=== PATIENT | male | born 1965 | race African-American/Black ===

== ENCOUNTER 2016-10-31 19:35 | Inpatient (IN) | payer OTHER ==
[2016-10-31] MEDS ORDERED: SODIUM CHLORIDE 1,000 ML IV STA (19:43)
[2016-10-31] MEDS ORDERED: HYDROmorphone HCL CARPU-JECT 1 MG/1 ML DISP.SYRIN IVPB ONE ×2 (19:43→21:58)
[2016-10-31] MEDS ORDERED: ONDANSETRON 4 MG/2 ML VIAL IVPUSH ONE (19:43)
[2016-10-31] MEDS ORDERED: FAMOTIDINE 20 MG/50 ML IVPB 50 ML IVPB ONE (19:46)
--- NOTE | 2016-10-31 19:47 | PDOC ---
History of Present Illness - History of Present Illness Initial Comments: 10/31/16 20:56 The patient is a 51 year old male with a past medical hx of diabetes, HTN, hyperthyroidism who presents to the ED complaining of intermittent diffuse abdominal pain. The patient reports he was seen at [place] [facility] two days ago for the same complaint. He notes he was given medication for his pain and had an entire work up including a CT abdomen/pelvis and endoscopy, which were both unremarkable. He states he stayed in the hospital for two days and was discharged yesterday. The patient states his pain then came back today and is very severe. He reports this pain started 1 year ago and has recently worsened over the past few days. He is scheduled for a colonoscopy at the end of the month. The patient reports waves of nausea but denies fever, chills, vomiting, diarrhea , chest pain, SOB. <Verona Goins - Last Filed: 10/31/16 20:56> <Adela Portillo - Last Filed: 11/03/16 11:50> - General Chief Complaint: Pain, Acute Stated Complaint: ABDOMINAL PAIN Time Seen by Provider: 10/31/16 19:42 Past History <Verona Goins - Last Filed: 10/31/16 20:56> - Psycho/Social/Smoking Cessation Hx Suicidal Ideation: No Smoking History: Smoker current status UNK Have you smoked in the past 12 months: No Information on smoking cessation initiated: No Hx Alcohol Use: No Drug/Substance Use Hx: No <Adela Portillo - Last Filed: 11/03/16 11:50> - Past Medical History Allergies/Adverse Reactions: Allergies Allergy/AdvReac Type Severity Reaction Status Date / Time No Known Allergies Allergy Verified 10/31/16 19:42 Home Medications: Ambulatory Orders Insulin Aspart [Novolog] 100 unit SQ ASDIR 10/31/16 Insulin Glargine,Hum.rec.anlog [Toujeo Solostar] 300 unit SQ ASDIR 10/31/16 Levothyroxine [Synthroid -] 25 mcg PO DAILY 10/31/16 Lisinopril/Hydrochlorothiazide [Lisinopril-Hctz 20-25 mg Tab] 1 each PO ASDIR Lovastatin 10 mg PO ASDIR 10/31/16 Metformin HCl 500 mg PO ASDIR 10/31/16 Review of Systems - Review of Systems Able to Perform ROS?: Yes Comments:: 10/31/16 20:56 GENERAL/CONSTITUTIONAL: No: fever, chills, weakness, loss of appetite. HEAD, EYES, EARS, NOSE AND THROAT: No: change in vision, ear pain, discharge, sore throat, throat swelling. CARDIOVASCULAR: No: chest pain, lightheadedness, palpitations, syncope RESPIRATORY: No: cough, shortness of breath, wheezing, hemoptysis, stridor. GASTROINTESTINAL: +Nausea, abdominal pain. No: vomiting, diarrhea, rectal bleeding, constipation. GENITOURINARY: No: dysuria, hematuria, frequency, urgency, flank pain. MUSCULOSKELETAL: No: back pain, neck pain, joint pain, muscle swelling or pain SKIN: No: lesions, pallor, rash or easy bruising. NEUROLOGIC: No: headache, vertigo, paresthesias, weakness ENDOCRINE: No: unexplained weight gain or loss HEMATOLOGIC/LYMPHATIC: No: anemia, easy bleeding, swelling nodes <Verona Goins - Last Filed: 10/31/16 20:56> *Physical Exam - Vital Signs Last Vital Signs Temp Pulse Resp BP Pulse Ox 97.5 F L 103 H 22 184/93 100 10/31/16 19:42 10/31/16 19:42 10/31/16 19:42 10/31/16 19:42 10/31/16 19:42 - Physical Exam Comments: 10/31/16 20:56 GENERAL: +Appears uncomfortable. HEAD: Normal with no signs of trauma. EYES: PERRLA, EOMI, sclera anicteric, conjunctiva clear. ENT: Ears normal, nares patent, oropharynx clear without exudates. Moist mucous membranes. NECK: Normal range of motion, supple without lymphadenopathy, JVD, or masses. LUNGS: Breath sounds equal, clear to auscultation bilaterally. No wheezes, and no crackles. HEART:Regular rate and rhythm, normal S1 and S2 without murmur, rub or gallop. ABDOMEN: +Epigastric tenderness. Soft, normoactive bowel sounds. No guarding, no rebound. EXTREMITIES: Normal range of motion, no edema. No clubbing or cyanosis. No erythema, or tenderness. NEUROLOGICAL: Cranial nerves II through XII grossly intact. Normal speech. No focal neurological deficits. MUSCULOSKELETAL: Back nontender to palpation, no CVA tenderness SKIN: Warm, Dry, normal turgor, no rashes or lesions noted. <Verona Goins - Last Filed: 10/31/16 20:56> - Vital Signs Last Vital Signs Temp Pulse Resp BP Pulse Ox 97.5 F L 103 H 22 184/93 100 10/31/16 19:42 10/31/16 19:42 10/31/16 19:42 10/31/16 19:42 10/31/16 19:42 <Adela Portillo - Last Filed: 11/03/16 11:50> Heart Score/ECG Review #1 ECG reviewed & interpreted by me at: 00:44 11/01/16 00:44 sinus tachycardia 105 vpm [place] normal Intervals normal: pr:140ms, QRS:90ms, Qtc:478ms No st elevations or depression T waves nml <Adela Portillo - Last Filed: 11/03/16 11:50> ED Treatment Course - LABORATORY CBC & Chemistry Diagram: 10/31/16 20:20 10/31/16 20:20 - ADDITIONAL ORDERS Additional order review: 10/31/16 20:20 RBC 4.40 MCV 86.6 MCHC 33.7 RDW 13.8 MPV 10.5 Neutrophils % 78.3 Lymphocytes % 16.7 Monocytes % 3.8 Eosinophils % 0.0 Basophils % 1.2 - Medications Given in the ED: ED Medications Discontinued Medications Generic Name Dose Route Start Last Admin Trade Name Freq PRN Reason Stop Dose Admin Hydromorphone HCl 0.5 mg 10/31/16 19:43 10/31/16 20:24 Dilaudid Injection - IVPB 10/31/16 19:44 0.5 mg NOW ONE Administration Sodium Chloride 1,000 mls @ 1,000 mls/hr 10/31/16 19:43 10/31/16 20:24 Normal Saline - IV 10/31/16 20:42 1,000 mls/hr ASDIR STA Administration Famotidine/Sodium Chloride 50 mls @ 100 mls/hr 10/31/16 19:46 10/31/16 20:24 Pepcid 20 Mg Premixed Ivpb - IVPB 10/31/16 20:15 100 mls/hr ONCE ONE Administration Ondansetron HCl 4 mg 10/31/16 19:43 10/31/16 20:24 Zofran Injection IVPUSH 10/31/16 19:44 4 mg ONCE ONE Administration <Verona Goins - Last Filed: 10/31/16 20:56> - LABORATORY CBC & Chemistry Diagram: 11/03/16 06:58 11/03/16 06:58 <Adela Portillo - Last Filed: 11/03/16 11:50> Medical Decision Making - Medical Decision Making 10/31/16 22:46 This is a 51 yo M with a history of diabetes, HTN, hyperthyroidism who presents to the ED complaining of intermittent diffuse abdominal pain. his symptoms began approximately 1 year ago His symptoms have been intermittent and have been worsening He was admitted to [facility] two days ago where he was admitted for 2 days S/p CT which was reportedly normal S/p Endoscopy which was also normal Pt was discahrged to home, stated he felt pretty good when he left He describes pain as sharp, initially located in the upper abdomen but pain "is moving" No fevers or chills No diarrhea (+) constipation for the past 2 days Pt denies marijuana use DD: pancreatitis, cholelithiasis/cholecystitis, sbo, colitis, gastritis, gastroparesis 10/31/16 22:57 Laboratory Tests 10/31/16 10/31/16 20:20 20:20 WBC 11.2 H Hgb 12.8 Hct 38.1 Plt Count 207 Neutrophils % 78.3 Lymphocytes % 16.7 Sodium 134 L Potassium 3.9 Chloride 100 Carbon Dioxide 22 Anion Gap 12 BUN 15 Creatinine 1.1 Random Glucose 261 H AST 41 H ALT 56 Alkaline Phosphatase 78 Total Protein 8.5 H Albumin 3.8 Total Amylase 232 H Lipase [address] (as I have no way of confirming that his studies were negative) PT admitted to [facility] Of note: Pt repeatedly requesting narcotic pain medications Pt states that Morphine is not strong enough Clinical Impression: intractable abdominal pain 11/03/16 11:49 <Adela Portillo - Last Filed: 11/03/16 11:50> *DC/Admit/Observation/Transfer - Attestations Scribe Attestion: 10/31/16 20:56 Documentation prepared by Verona Goins, acting as caregivers non medical for Adela Portillo MD/DO. <Verona Goins - Last Filed: 10/31/16 20:56> - Discharge Dispostion Admit: Yes <Adela Portillo - Last Filed: 11/03/16 11:50> Diagnosis at time of Disposition: Abdominal pain Qualifiers: Abdominal location: unspecified location Qualified Code(s): R10.9 - Unspecified abdominal pain - Discharge Dispostion Condition at time of disposition: Stable
[2016-10-31] MEDS ORDERED: HYDROmorphone HCL CARPU-JECT 1 MG/1 ML DISP.SYRIN ONE ×2 (20:18→22:01)
[2016-10-31] MEDS ORDERED: ONDANSETRON 4 MG/2 ML VIAL ONE (20:18)
[2016-10-31 20:32] LABS: BASOPHIL 1.2 % (0-2.0); MCH 29.2 pg (25.7-33.7); MCHC 33.7 g/dl (32.0-35.9); MEAN CELL VOLUME 86.6 fl (80-96); MEAN PLT VOLUME 10.5 fl (7.5-11.1); NEUTROPHILS 78.3 % (42.8-82.8); PLATELET COUNT 207 K/MM3 (134-434); RDW 13.8 % (11.9-15.9); WHITE BLOOD COUNT 11.2 K/mm3 (4.0-10.0)
[2016-10-31 21:16] LABS: ALBUMIN 3.8 g/dl (3.4-5.0); ALK PHOS 78 U/L (45-117); AMYLASE 232 U/L (25-115); ANION GAP 12 (8-16); BILIRUBIN,TOTAL 0.7 mg/dL (0.2-1.0); CALCIUM 9.4 mg/dL (8.5-10.1); CO2 22 mmol/L (21-32); COCKROFT - GAULT 128.86; CREATININE 1.1 mg/dL (0.7-1.3); GLUCOSE,RANDOM 261 mg/dL (74-106); SGOT/AST 41 U/L (15-37); SGPT/ALT 56 U/L (12-78); TOT PROT 8.5 g/dl (6.4-8.2)
[2016-10-31] MEDS ORDERED: SODIUM CHLORIDE 1,000 ML IV SCH (22:45)
[2016-10-31] MEDS ORDERED: HYDROmorphone HCL CARPU-JECT 2 MG/1 ML DISP.SYRIN ONE (23:36)
[2016-10-31] MEDS ORDERED: DOCUSATE SODIUM 100 MG CAPSULE (FP) PO ONE (23:38)
[2016-10-31] MEDS: HYDROmorphone HCL CARPU-JECT 2 MG/1 ML DISP.SYRIN IM PRN (23:45)
[2016-10-31] MEDS: DOCUSATE SODIUM 100 MG CAPSULE (FP) PO PRN (23:45)
[2016-11-01 01:12] VITALS: BMI 39.2
[2016-11-01 01:20] LABS: URINE APPEARANCE CLEAR; URINE BILIRUBIN NEGATIVE (NEGATIVE); URINE COLOR STRAW; URINE GLUCOSE (UA) 3+ (NEGATIVE); URINE KETONE TRACE (NEGATIVE); URINE LEUK ESTERASE NEGATIVE (NEGATIVE); URINE NITRITE NEGATIVE (NEGATIVE); URINE UROBILINOGEN NEGATIVE E.U./dl (0.2-1.0)
[2016-11-01 01:23] LABS: URINE BLOOD 1+ (NEGATIVE); URINE PROTEIN 3+ (NEGATIVE)
[2016-11-01 01:28] LABS: URINE BACTERIA RARE /hpf (NONE SEEN); URINE MUCUS RARE; URINE RBC 4 /hpf (0-3); URINE WBC 1 /hpf (3-5)
[2016-11-01] MEDS ORDERED: SODIUM CHLORIDE 0.45% 1,000 ML IV SCH (02:15)
[2016-11-01] MEDS: amLODIPine BESYLATE 10 MG TABLET (FP) PO SCH ×2 (02:24→10:44)
[2016-11-01 03:43] LABS: URINE MARIJUANA THC NEGATIVE ng/ml (CUTOFF=50)
[2016-11-01] MEDS: HYDROmorphone HCL CARPU-JECT 2 MG/1 ML DISP.SYRIN IM PRN ×2 (03:46→08:36)
[2016-11-01] MEDS: INSULIN SLIDING SCALE (NOVOLOG) 1 VIAL SQ SCH ×4 (06:10→21:45)
[2016-11-01] MEDS ORDERED: LEVOTHYROXINE NA 25 MCG TABLET (FP) PO SCH (07:00)
[2016-11-01] MEDS ORDERED: SODIUM PHOSPHATE/NA BIPHOS 133 ML ENEMA RC ONE (09:30)
[2016-11-01] MEDS: SODIUM PHOSPHATE/NA BIPHOS 133 ML ENEMA RC ONE ×2 (09:30→14:30)
[2016-11-01] MEDS: ONDANSETRON 4 MG/2 ML VIAL IVPB PRN ×2 (09:50→20:00)
[2016-11-01 10:37] LABS: BASOPHIL 0.8 % (0-2.0); EOSINOPHIL 0.2 % (0-4.5); MCH 28.9 pg (25.7-33.7); MCHC 33.2 g/dl (32.0-35.9); MEAN CELL VOLUME 87.2 fl (80-96); MEAN PLT VOLUME 10.3 fl (7.5-11.1); NEUTROPHILS 70.8 % (42.8-82.8); PLATELET COUNT 194 K/MM3 (134-434); RDW 14.1 % (11.9-15.9); WHITE BLOOD COUNT 13.9 K/mm3 (4.0-10.0)
[2016-11-01] MEDS: FAMOTIDINE 20 MG/50 ML IVPB 50 ML IVPB SCH ×2 (10:44→21:44)
[2016-11-01] MEDS: LISINOPRIL 20 MG TABLET (FP) PO SCH (10:44)
[2016-11-01] MEDS: HYDROCHLOROTHIAZIDE 25 MG TABLET (FP) PO SCH (10:44)
[2016-11-01 10:54] LABS: THYROID STIMULATING HORMONE 4.71 uIU/ml (0.358-3.74); TROPONIN I < 0.02 ng/ml (0.00-0.05)
[2016-11-01 11:12] LABS: ALBUMIN 3.2 g/dl (3.4-5.0); ANION GAP 12 (8-16); BILIRUBIN,TOTAL 0.7 mg/dL (0.2-1.0); CALCIUM 8.7 mg/dL (8.5-10.1); CO2 24 mmol/L (21-32); COCKROFT - GAULT 122.04; CREATININE 1.2 mg/dL (0.7-1.3); GLUCOSE,RANDOM 220 mg/dL (74-106); SGOT/AST 27 U/L (15-37); SGPT/ALT 45 U/L (12-78); TOT PROT 7.7 g/dl (6.4-8.2)
[2016-11-01 11:21] LABS: ALK PHOS 70 U/L (45-117); THYROID STIMULATING HORMONE 4.73 uIU/ml (0.358-3.74); TROPONIN I < 0.02 ng/ml (0.00-0.05)
[2016-11-01 12:20] LABS: ERYTHROCYTE SEDIMENTATION RATE 62 mm/hr (0-20)
--- NOTE | 2016-11-01 12:24 | EKG ---
Test Reason : Blood Pressure : / mmHG Vent. Rate : 105 BPM Atrial Rate : 105 BPM P-R Int : 140 ms QRS Dur : 090 ms QT Int : 362 ms P-R-T Axes : 053 044 037 degrees QTc Int : 478 ms SINUS TACHYCARDIA OTHERWISE NORMAL ECG WHEN COMPARED WITH ECG OF 06-AUG-2004 03:42, NO SIGNIFICANT CHANGE WAS FOUND Confirmed by LEONORA NOONAN MD ([id number]) on 11/01/2016 12:24:19 PM Referred By: Confirmed By:LEONORA NOONAN MD
--- NOTE | 2016-11-01 14:43 | HP ---
Admitting History and Physical - Primary Care Physician PCP: Keisha Talavera - Admission Chief Complaint: abd pain History Source: Medical Record - Smoking History Smoking history: Smoker current status UNK Have you smoked in the past 12 months: No - Alcohol/Substance Use Hx Alcohol Use: No Home Medications - Allergies Allergies/Adverse Reactions: Allergies Allergy/AdvReac Type Severity Reaction Status Date / Time No Known Allergies Allergy Verified 10/31/16 19:42 - Home Medications Home Medications: Ambulatory Orders Insulin Aspart [Novolog] 100 unit SQ ASDIR 10/31/16 Insulin Glargine,Hum.rec.anlog [Toujeo Solostar] 300 unit SQ ASDIR 10/31/16 Levothyroxine [Synthroid -] 25 mcg PO DAILY 10/31/16 Lisinopril/Hydrochlorothiazide [Lisinopril-Hctz 20-25 mg Tab] 1 each PO ASDIR Lovastatin 10 mg PO ASDIR 10/31/16 Metformin HCl 500 mg PO ASDIR 10/31/16 Review of Systems - Review of Systems Constitutional: denies: Chills, Fever Neck: reports: No Symptoms Cardiovascular: reports: No Symptoms Respiratory: reports: No Symptoms Gastrointestinal: reports: Abdominal Pain Genitourinary: reports: No Symptoms Musculoskeletal: reports: No Symptoms Physical Examination Vital Signs: Vital Signs Temperature 97.9 F 11/01/16 13:40 Pulse Rate 89 11/01/16 13:43 Respiratory Rate 20 11/01/16 13:43 Blood Pressure 163/111 11/01/16 13:43 O2 Sat by Pulse Oximetry (%) 94 L 11/01/16 11:00 Constitutional: Yes: Calm Eyes: Yes: WNL HENT: Yes: WNL Neck: Yes: WNL Cardiovascular: Yes: WNL Respiratory: Yes: WNL Gastrointestinal: Yes: WNL Edema: No Labs: CBC, BMP 11/01/16 10:00 11/01/16 10:00 Imaging - Results Cat Scan: Report Reviewed (ct report pending) Problem List - Problems (1) Abdominal pain Code(s): R10.9 - UNSPECIFIED ABDOMINAL PAIN Qualifiers: Abdominal location: unspecified location Qualified Code(s): R10.9 - Unspecified abdominal pain (2) Diabetes Code(s): E11.9 - TYPE 2 DIABETES MELLITUS WITHOUT COMPLICATIONS (3) HTN (hypertension) Code(s): I10 - ESSENTIAL (PRIMARY) HYPERTENSION (4) Hypothyroid Code(s): E03.9 - HYPOTHYROIDISM, UNSPECIFIED (5) Leukocytosis Code(s): D72.829 - ELEVATED WHITE BLOOD CELL COUNT, UNSPECIFIED Assessment/Plan The patient is a 51 year old male with a past medical hx of diabetes, HTN, hyperthyroidism who presents to the ED complaining of intermittent diffuse abdominal pain. The patient reports he was seen at [place] ED two days ago for the same complaint. He notes he was given medication for his pain and had an entire work up including a CT abdomen/pelvis and endoscopy, which were both unremarkable. He states he stayed in the hospital for two days and was discharged yesterday. The patient states his pain then came back today and is very severe. He reports this pain started 1 year ago and has recently worsened over the past few days. He is scheduled for a colonoscopy at the end of the month. The patient reports waves of nausea but denies fever, chills, vomiting, diarrhea , chest pain, SOB. (1) Abdominal pain Code(s): R10.9 - UNSPECIFIED ABDOMINAL PAIN Qualifiers: Abdominal location: unspecified location Qualified Code(s): R10.9 - Unspecified abdominal pain chronic x 1 year recent admission/work up at [facility] neg as per patient gi & surg consulted npo ivf had small bm s/p enema f/u ctap report (2) Diabetes Code(s): E11.9 - TYPE 2 DIABETES MELLITUS WITHOUT COMPLICATIONS bgm iss (3) HTN (hypertension) Code(s): I10 - ESSENTIAL (PRIMARY) HYPERTENSION ' uncontrolled cardio consulted trop neg x 2 (4) Hypothyroid Code(s): E03.9 - HYPOTHYROIDISM, UNSPECIFIED tsh high synthroid increased (5) Leukocytosis Code(s): D72.829 - ELEVATED WHITE BLOOD CELL COUNT, UNSPECIFIED ucx neg - bc - id [employer] [facility]
[2016-11-01] MEDS ORDERED: LISINOPRIL 20 MG TABLET (FP) PO ONE (14:48)
[2016-11-01] MEDS ORDERED: HYDROmorphone HCL CARPU-JECT 2 MG/1 ML DISP.SYRIN IVPB PRN ×2 (14:55→21:28)
--- NOTE | 2016-11-01 15:04 | CON.GI ---
Consult Consult Specialty:: GASTROENTEROLOGY Reason for Consultation:: ABDOMINAL PAIN - History of Present Illness Chief Complaint: ABDOMINAL PAIN, VOMITING History of Present Illness: 51 YEAR OLD AFRO [place] MALE WITH RECURRENT ABDOMINAL PAIN. HE WAS AT [facility] ON WEDNESDAY, WEDNESDAY AND WEDNESDAY FOR ABDOMINAL PAIN. CT SCAN AND UPPER ENDOSCOPY DONE BUT EXACT CAUSE OF PAIN NOT FOUND. PAIN RETURNED AND CAME TO [facility]. CT SCAN NOT OFFICIALLY READ YET AND LABS REVEAL MILDLY ELEVATED AMYLASE BUT NORMAL LIPASE. - History Source History Provided By: Patient Limitations to Obtaining History: No Limitations - Past Medical History SANITATION LEAD: No: Alzheimer's, CVA, Dementia, Migraine, Multiple Sclerosis, Peripheral Neuropathy, Parkinson's, Seizure, Syncope, TIA, Vertigo, Other Cardio/Vascular: Yes: HTN Pulmonary: No: Asthma, Bronchitis, Cancer, COPD, O2 Dependent, Pneumonia, Previously Intubated, Pulmonary Embolus, Pulmonary Fibrosis, Sleep Apnea, Other Gastrointestinal: No: Ascites, Cancer, Constipation, Crohn's Disease, Diverticulitis, Diverticulosis, Esophageal Varices, Gastritis, GERD, GI Bleed, Hemorrhoids, Hiatal Hernia, Inflamatory Bowel Disease, Irritable Bowel Disease, Pancreatitis, Peptic Ulcer Disease, Ulcerative Colitis, Other Hepatobiliary: No: Cirrhosis, Cholelithiasis, Cholecystitis, Choledocholithiasis , Hepatitis A, Hepatitis B, Hepatitis C, Other Renal/: No: Renal Failure, Renal Inusuff, BPH, Cancer, Hematuria, Hemodialysis , Neurogenic Bladder, Renal Calculi, UTI, Other Heme/Onc: No: Anemia, B12 Deficiency, Bleeding Disorder, Cancer, Current Chemotherapy, Current Radiation Therapy, Hemochromatosis, Hypercoaguable State, Myeloproliferative Synd, Sickle Cell Disease, Sickle Cell Trait, Thrombocytopenia, Other Endocrine: Yes: Diabetes Mellitus, Hypothyroidism - Past Surgical History Additional Surgical History: ANKLE INJURY - Alcohol/Substance Use Hx Alcohol Use: No - Smoking History Smoking history: Smoker current status UNK Have you smoked in the past 12 months: No Home Medications - Allergies Allergies/Adverse Reactions: Allergies Allergy/AdvReac Type Severity Reaction Status Date / Time No Known Allergies Allergy Verified 10/31/16 19:42 - Home Medications Home Medications: Ambulatory Orders Insulin Aspart [Novolog] 100 unit SQ ASDIR 10/31/16 Insulin Glargine,Hum.rec.anlog [Toujeo Solostar] 300 unit SQ ASDIR 10/31/16 Levothyroxine [Synthroid -] 25 mcg PO DAILY 10/31/16 Lisinopril/Hydrochlorothiazide [Lisinopril-Hctz 20-25 mg Tab] 1 each PO ASDIR Lovastatin 10 mg PO ASDIR 10/31/16 Metformin HCl 500 mg PO ASDIR 10/31/16 Family Disease History - Family Disease History Family Disease History: CA: Father (CARDIAC DISEASE, [place]), Other: Mother (SEPSIS) Review of Systems - Review of Systems Constitutional: reports: No Symptoms Eyes: reports: No Symptoms HENT: reports: No Symptoms Neck: reports: No Symptoms Cardiovascular: reports: No Symptoms Respiratory: reports: No Symptoms Gastrointestinal: reports: Abdominal Pain, Nausea, Vomiting Genitourinary: reports: No Symptoms Musculoskeletal: reports: No Symptoms Integumentary: reports: No Symptoms Neurological: reports: No Symptoms Endocrine: reports: No Symptoms Hematology/Lymphatic: reports: No Symptoms Psychiatric: reports: No Symptoms Physical Exam-GI Vital Signs: Vital Signs Temperature 97.9 F 11/01/16 13:40 Pulse Rate 89 11/01/16 13:43 Respiratory Rate 20 11/01/16 13:43 Blood Pressure 163/111 11/01/16 13:43 O2 Sat by Pulse Oximetry (%) 94 L 11/01/16 11:00 Constitutional: Yes: Obese Eyes: Yes: Conjunctiva Clear HENT: Yes: Normocephalic Neck: Yes: Supple Cardiovascular: Yes: Regular Rate and Rhythm Respiratory: Yes: Regular Gastrointestinal Inspection: Yes: Distention ...Auscultate: Yes: Hypoactive Bowel Sounds ...Palpate: Yes: Tenderness, Epigastium, Other (MIDLINE HERNIA OF ABDOMINAL MUSCLES SOME TENDERNESS) ...Rectal Exam: Yes: Deferred Musculoskeletal: Yes: WNL Extremities: Yes: WNL Neurological: Yes: Alert, Oriented Psychiatric: Yes: Alert, Oriented Labs: CBC, BMP 11/01/16 10:00 11/01/16 10:00 Laboratory Tests 11/01/16 11/01/16 11/01/16 01:13 06:09 10:00 WBC 13.9 H RBC 4.21 Hgb 12.2 Hct 36.7 MCV 87.2 MCHC 33.2 RDW 14.1 Plt Count 194 MPV 10.3 Neutrophils % 70.8 Lymphocytes % 19.7 Monocytes % 8.5 D Eosinophils % 0.2 D Basophils % 0.8 ESR 62 H Sodium Potassium Chloride Carbon Dioxide Anion Gap BUN Creatinine Creat Clearance w eGFR POC Glucometer 266 Random Glucose Calcium Total Bilirubin AST ALT Alkaline Phosphatase Creatine Kinase Creatine Kinase Index CK-MB (CK-2) Troponin I Total Protein Albumin TSH Urine Color Straw Urine Appearance Clear Urine pH 6.0 Ur Specific [place] 1.014 Urine Protein 3+ H Urine Glucose (UA) 3+ H Urine Ketones Trace H Urine Blood 1+ H Urine Nitrite Negative Urine Bilirubin Negative Urine Urobilinogen Negative Ur Leukocyte Esterase Negative Urine RBC 4 11/01/16 11/01/16 10:00 10:00 WBC RBC Hgb Hct MCV MCHC RDW Plt Count MPV Neutrophils % Lymphocytes % Monocytes % Eosinophils % Basophils % ESR Sodium 133 L Potassium 4.0 Chloride 97 L Carbon Dioxide 24 Anion Gap 12 BUN 15 Creatinine 1.2 Creat Clearance w eGFR > 60 POC Glucometer Random Glucose 220 H Calcium 8.7 Total Bilirubin 0.7 AST 27 D ALT 45 Alkaline Phosphatase 70 Creatine Kinase 907 H 922 H Creatine Kinase Index 0.3 CK-MB (CK-2) 2.482 Troponin I < 0.02 < 0.02 Total Protein 7.7 Albumin 3.2 L TSH 4.73 H 4.71 H D Urine Color Urine Appearance Urine pH Ur Specific [place] Urine Protein Urine Glucose (UA) Urine Ketones Urine Blood Urine Nitrite Urine Bilirubin Urine Urobilinogen Ur Leukocyte Esterase Urine RBC Imaging - Results Cat Scan: Pending Problem List - Problems (1) Abdominal pain Assessment/Plan: THE DIFFERENTIAL HERE IS WIDE. THE SYMPTOMS ARE VAGUE, THE CT SCAN NOT OFFICIALLY READ. I SEE A DILATED STOMACH AND GB BUT PANCREAS LOOKS OK. THERE IS ALSO A SMALL HERNIA. THE CAUSES OF HIS PAIN COULD BE PANCREATITIS, COMPLICATIONS OF DIABETES LIKE GASTROPARESIS, CONSTIPATION FROM HYPOTHYROIDISM. THE EGD WAS SUPPOSEDLY NORMAL HE WOULD NEED AN OUTPATIENT COLONOSCOPY. HIS PAIN HAS IMPROVED FROM A DOSE OF DILAUDID IN THE MORNING KEEP NPO, NEEDS IVF, CHECK ON OFFICAL READING OF CT SCAN. REPEAT LABS FURTHER WORKUP DEPENDING ON CT SCAN. Code(s): R10.9 - UNSPECIFIED ABDOMINAL PAIN Qualifiers: Abdominal location: unspecified location Qualified Code(s): R10.9 - Unspecified abdominal pain (2) Elevated amylase Code(s): R74.8 - ABNORMAL LEVELS OF OTHER SERUM ENZYMES (3) Ventral hernia Code(s): K43.9 - VENTRAL HERNIA WITHOUT OBSTRUCTION OR GANGRENE (4) Diabetes Code(s): E11.9 - TYPE 2 DIABETES MELLITUS WITHOUT COMPLICATIONS (5) Hypothyroid Code(s): E03.9 - HYPOTHYROIDISM, UNSPECIFIED
--- NOTE | 2016-11-01 15:04 | CON.CARD ---
Consult Consult Specialty:: Cardiology Reason for Consultation:: HTN - History of Present Illness Chief Complaint: Abdominal bloating. Elevated BP History of Present Illness: This is a 51 year old male with a PMH of DM2, HTN, and hyperthyroidism. He presented to ER with abdominal pain and bloating. He was recently evaluated at [facility] with similar complaints and discharged 2 days ago. He is receiving Dilaudid and complaining of constipation. He stated to me that recently his blood pressure has been difficult to control. He denies chest pain , palpitations, and CAMPBELL. - Past Medical History Cardio/Vascular: Yes: HTN Gastrointestinal: Yes: Constipation Endocrine: Yes: Diabetes Mellitus - Alcohol/Substance Use Hx Alcohol Use: No - Smoking History Smoking history: Smoker current status UNK Have you smoked in the past 12 months: No Home Medications - Allergies Allergies/Adverse Reactions: Allergies Allergy/AdvReac Type Severity Reaction Status Date / Time No Known Allergies Allergy Verified 10/31/16 19:42 - Home Medications Home Medications: Ambulatory Orders Insulin Aspart [Novolog] 100 unit SQ ASDIR 10/31/16 Insulin Glargine,Hum.rec.anlog [Toujeo Solostar] 300 unit SQ ASDIR 10/31/16 Levothyroxine [Synthroid -] 25 mcg PO DAILY 10/31/16 Lisinopril/Hydrochlorothiazide [Lisinopril-Hctz 20-25 mg Tab] 1 each PO ASDIR Lovastatin 10 mg PO ASDIR 10/31/16 Metformin HCl 500 mg PO ASDIR 10/31/16 Review of Systems Unable to obtain ROS, reason: As per HPI Vital Signs: Vital Signs Temperature 97.9 F 11/01/16 13:40 Pulse Rate 89 11/01/16 13:43 Respiratory Rate 20 11/01/16 13:43 Blood Pressure 163/111 11/01/16 13:43 O2 Sat by Pulse Oximetry (%) 94 L 11/01/16 11:00 Constitutional: Yes: Well Nourished Gastrointestinal: Yes: Distention Cardiovascular: Yes: Regular Rate and Rhythm Heart Sounds: Yes: S1, S2 (No murmurs) Edema: No - Other Data Labs, Other Data: CBC, BMP 11/01/16 10:00 11/01/16 10:00 Troponin, BNP 11/01/16 11/01/16 10:00 10:00 Troponin I < 0.02 < 0.02 Troponin, BNP 11/01/16 11/01/16 10:00 10:00 Troponin I < 0.02 < 0.02 Assessment/Plan Cardiac: HTN: Current BP is 163/111 mmHG Present medications include: Lisinopril 20 mg po daily HCTZ 25 mg po daily Norvasc 10 mg daily He is still experiencing abdominal pain. Would reassess BP when comfortable from a GI standpoint before adding to his antihypertensive regimen. BP may normalize once not in GI distress. Troponins are negative x2. No need for a coronary evaluation at this time.
[2016-11-01] MEDS: DEXTROSE 5%-0.45% SALINE 1,000 ML IV SCH (15:32)
[2016-11-01] MEDS ORDERED: INSULIN (NOVOLOG) ASPART 100 UNITS/ML 10ML VIAL ONE (17:19)
[2016-11-01] MEDS: INSULIN DETEMIR 100 UNITS/ML MDV SQ SCH (17:23)
[2016-11-01] MEDS ORDERED: INSULIN DETEMIR 100 UNITS/ML MDV SQ ONE (17:32)
[2016-11-01] MEDS ORDERED: METOCLOPRAMIDE HCL INJECTION 10 MG/2 ML VIAL IVPB ONE ×2 (21:26→21:45)
[2016-11-01] MEDS ORDERED: HYDROmorphone HCL CARPU-JECT 1 MG/1 ML DISP.SYRIN ONE (21:41)
[2016-11-01] MEDS: HYDROmorphone HCL CARPU-JECT 1 MG/1 ML DISP.SYRIN IVPB PRN (21:52)
[2016-11-01] MEDS ORDERED: PATIENT'S OWN MEDICATION (NON-FORMULARY) (Lovastatin [Lovastatin] 10 MG) PO SCH (22:00)
[2016-11-02] MEDS: HYDROmorphone HCL CARPU-JECT 1 MG/1 ML DISP.SYRIN IVPB PRN ×5 (05:48→22:13)
[2016-11-02] MEDS: ONDANSETRON 4 MG/2 ML VIAL IVPB PRN ×3 (05:48→18:03)
[2016-11-02] MEDS: amLODIPine BESYLATE 10 MG TABLET (FP) PO SCH ×2 (05:53→10:12)
[2016-11-02] MEDS: HYDROCHLOROTHIAZIDE 25 MG TABLET (FP) PO SCH ×2 (05:54→10:12)
[2016-11-02] MEDS: INSULIN DETEMIR 100 UNITS/ML MDV SQ SCH ×2 (06:22→16:42)
[2016-11-02] MEDS: INSULIN SLIDING SCALE (NOVOLOG) 1 VIAL SQ SCH ×4 (06:22→22:14)
[2016-11-02] MEDS: LEVOTHYROXINE NA 50 MCG TABLET (FP) PO SCH (06:28)
[2016-11-02 07:49] LABS: BASOPHIL 1.2 % (0-2.0); EOSINOPHIL 0.2 % (0-4.5); MCH 28.9 pg (25.7-33.7); MCHC 33.9 g/dl (32.0-35.9); MEAN CELL VOLUME 85.1 fl (80-96); MEAN PLT VOLUME 10.7 fl (7.5-11.1); NEUTROPHILS 72.9 % (42.8-82.8); PLATELET COUNT 211 K/MM3 (134-434); RDW 13.8 % (11.9-15.9); WHITE BLOOD COUNT 12.2 K/mm3 (4.0-10.0)
[2016-11-02 08:10] LABS: AMYLASE 87 U/L (25-115)
[2016-11-02 08:20] LABS: ALBUMIN 3.5 g/dl (3.4-5.0); ALK PHOS 78 U/L (45-117); ANION GAP 13 (8-16); BILIRUBIN,TOTAL 0.7 mg/dL (0.2-1.0); CALCIUM 9.4 mg/dL (8.5-10.1); CO2 25 mmol/L (21-32); COCKROFT - GAULT 133.13; CREATININE 1.1 mg/dL (0.7-1.3); GLUCOSE,RANDOM 275 mg/dL (74-106); SGOT/AST 38 U/L (15-37); SGPT/ALT 49 U/L (12-78); TROPONIN I < 0.02 ng/ml (0.00-0.05)
--- NOTE | 2016-11-02 09:12 | CONSULT ---
[id number]). HISTORY OF PRESENT ILLNESS: This is a 51 year old male with a PMH of DM, HTN, HDL, hypothyroidism who presented to the hospital complaining of intermittent abdominal pain that is present for a year and got worse in the last 2 weeks. It has become constant, diffuse, cramping like, 03/21, associated with nausea and constipation, no relation to food, no alleviating/aggravating factors. He was hospitalized last week in [facility] and discharged without specific diagnosis. He had negative CT abdomen/pelvis. He has never had colonoscopy. The pt denies sick contacts, recent travel. He denies weight changes, fever, chills. He denies vomiting, diarrhea. The pt denies chest pain, palpitations, SOB. He denies headache, vision changes, dizziness, LOC. REVIEW OF SYSTEMS: CONSTITUTIONAL: Absent: fever, chills, diaphoresis, generalized weakness, malaise, loss of appetite, weight change HEENT: Absent: rhinorrhea, nasal congestion, throat pain, throat swelling, difficulty swallowing, mouth swelling, ear pain, eye pain, visual changes CARDIOVASCULAR: Absent: chest pain, syncope, palpitations, irregular heart rate, lightheadedness , peripheral edema RESPIRATORY: Absent: cough, shortness of breath, dyspnea with exertion, orthopnea, wheezing, stridor, hemoptysis GASTROINTESTINAL:abdominal pain, constipation, nausea Absent: abdominal distension, vomiting, diarrhea, melena, hematochezia GENITOURINARY: Absent: dysuria, frequency, urgency, hesitancy, hematuria, flank pain, genital pain MUSCULOSKELETAL: Absent: myalgia, arthralgia, joint swelling, back pain, neck pain SKIN: Absent: rash, itching, pallor ENDOCRINE: Absent: unexplained weight gain, unexplained weight loss, heat intolerance, cold intolerance NEUROLOGIC: Absent: headache, focal weakness or paresthesias, dizziness, unsteady gait, seizure, mental status changes, bladder or bowel incontinence PSYCHIATRIC: Absent: anxiety, depression PHYSICAL EXAMINATION Vital Signs - 24 hr 11/01/16 11/01/16 11/01/16 09:52 10:42 11:00 Temperature 97.9 F Pulse Rate 89 Respiratory 20 Rate Blood Pressure 153/91 O2 Sat by Pulse 94 L Oximetry (%) 11/01/16 11/01/16 11/01/16 13:40 13:43 15:27 Temperature 97.9 F Pulse Rate 90 89 91 H Respiratory 20 20 20 Rate Blood Pressure 161/108 163/111 163/90 O2 Sat by Pulse Oximetry (%) 11/01/16 11/01/16 11/01/16 17:13 21:00 21:12 Temperature 97.7 F Pulse Rate 89 102 H Respiratory 20 20 23 Rate Blood Pressure 155/95 144/78 O2 Sat by Pulse 94 L Oximetry (%) 11/02/16 05:51 Temperature 98.1 F Pulse Rate 110 H Respiratory 26 H Rate Blood Pressure 162/111 O2 Sat by Pulse Oximetry (%) GENERAL: Awake, alert, and fully oriented, in no acute distress. HEAD: Normal with no signs of trauma. EYES: extraocular movements intact, sclera anicteric, conjunctiva clear. No lid lag. EARS, NOSE, THROAT: Ears normal, nares patent, oropharynx clear without exudates. Moist mucous membranes. NECK: Normal range of motion, supple without lymphadenopathy, JVD, or masses. LUNGS: Breath sounds equal, clear to auscultation bilaterally. No wheezes, and no crackles. No accessory muscle use. HEART: Regular rate and rhythm, normal S1 and S2 without murmur, rub or gallop. ABDOMEN: Soft, tender in all 4 Q, not distended, normoactive bowel sounds, no guarding, no rebound, no masses. MUSCULOSKELETAL: Normal range of motion at all joints. No bony deformities or tenderness. No CVA tenderness. UPPER EXTREMITIES: 2+ pulses, warm. No cyanosis. No clubbing. No peripheral edema. LOWER EXTREMITIES: 2+ pulses, warm. No calf tenderness. No peripheral edema. NEUROLOGICAL: No facial asymmetry. Normal speech. Normal gait. PSYCHIATRIC: Cooperative. Good eye contact. Appropriate mood and affect. SKIN: Warm, dry, normal turgor, no rashes or lesions noted. Laboratory Results - last 24 hr 11/01/16 11/01/16 11/01/16 10:00 10:00 10:00 WBC 13.9 H RBC 4.21 Hgb 12.2 Hct 36.7 MCV 87.2 MCHC 33.2 RDW 14.1 Plt Count 194 MPV 10.3 Neutrophils % 70.8 Lymphocytes % 19.7 Monocytes % 8.5 D Eosinophils % 0.2 D Basophils % 0.8 ESR 62 H Sodium 133 L Potassium 4.0 Chloride 97 L Carbon Dioxide 24 Anion Gap 12 BUN 15 Creatinine 1.2 Creat Clearance w eGFR > 60 POC Glucometer Random Glucose 220 H Calcium 8.7 Total Bilirubin 0.7 AST 27 D ALT 45 Alkaline Phosphatase 70 Creatine Kinase 907 H 922 H Creatine Kinase Index 0.3 CK-MB (CK-2) 2.482 CK-MB (CK-2) Rel Index Troponin I < 0.02 < 0.02 Total Protein 7.7 Albumin 3.2 L Total Amylase Lipase TSH 4.73 H 4.71 H D 11/01/16 11/01/16 11/01/16 10:00 10:00 11:46 WBC RBC Hgb Hct MCV MCHC RDW Plt Count MPV Neutrophils % Lymphocytes % Monocytes % Eosinophils % Basophils % ESR Sodium Potassium Chloride Carbon Dioxide Anion Gap BUN Creatinine Creat Clearance w eGFR POC Glucometer 197 Random Glucose Calcium Total Bilirubin AST ALT Alkaline Phosphatase Creatine Kinase Creatine Kinase Index CK-MB (CK-2) CK-MB (CK-2) Rel Index Cancelled Cancelled Troponin I Total Protein Albumin Total Amylase Lipase TSH 11/01/16 11/01/16 11/01/16 15:15 17:16 21:02 WBC RBC Hgb Hct MCV MCHC RDW Plt Count MPV Neutrophils % Lymphocytes % Monocytes % Eosinophils % Basophils % ESR Sodium Potassium Chloride Carbon Dioxide Anion Gap BUN Creatinine Creat Clearance w eGFR POC Glucometer 193 209 226 Random Glucose Calcium Total Bilirubin AST ALT Alkaline Phosphatase Creatine Kinase Creatine Kinase Index CK-MB (CK-2) CK-MB (CK-2) Rel Index Troponin I Total Protein Albumin Total Amylase Lipase TSH 11/02/16 11/02/16 11/02/16 06:00 06:00 06:00 WBC 12.2 H RBC 4.44 Hgb 12.8 Hct 37.8 MCV 85.1 MCHC 33.9 RDW 13.8 Plt Count 211 MPV 10.7 Neutrophils % 72.9 Lymphocytes % 19.9 Monocytes % 5.8 Eosinophils % 0.2 Basophils % 1.2 ESR Sodium 131 L Potassium 4.0 Chloride 93 L Carbon Dioxide 25 Anion Gap 13 BUN 13 Creatinine 1.1 Creat Clearance w eGFR > 60 POC Glucometer Random Glucose 275 H D Calcium 9.4 Total Bilirubin 0.7 AST 38 H D ALT 49 Alkaline Phosphatase 78 Creatine Kinase 634 H D Creatine Kinase Index 0.4 CK-MB (CK-2) 2.553 CK-MB (CK-2) Rel Index Troponin I < 0.02 Total Protein 8.0 Albumin 3.5 Total Amylase 87 D Lipase 232 TSH 11/02/16 11/02/16 06:00 06:16 WBC RBC Hgb Hct MCV MCHC RDW Plt Count MPV Neutrophils % Lymphocytes % Monocytes % Eosinophils % Basophils % ESR Sodium Potassium Chloride Carbon Dioxide Anion Gap BUN Creatinine Creat Clearance w eGFR POC Glucometer 281 Random Glucose Calcium Total Bilirubin AST ALT Alkaline Phosphatase Creatine Kinase Creatine Kinase Index CK-MB (CK-2) CK-MB (CK-2) Rel Index Cancelled Troponin I Total Protein Albumin Total Amylase Lipase TSH Active Medications Generic Name Dose Route Start Last Admin Trade Name Freq PRN Reason Stop Dose Admin Amlodipine Besylate 10 mg 11/01/16 02:15 11/02/16 05:53 Norvasc - PO 10 mg DAILY MARQUIS Administration Docusate Sodium 100 mg 10/31/16 22:37 10/31/16 23:45 Colace - PO 100 mg BID PRN Administration CONSTIPATION Hydrochlorothiazide 25 mg 11/01/16 10:00 11/02/16 05:54 Hctz - PO 25 mg DAILY MARQUIS Administration Hydromorphone HCl 1 mg 11/01/16 21:47 11/02/16 05:48 Dilaudid Injection - IVPB 1 mg Q4H PRN Administration PAIN Famotidine/Sodium Chloride 50 mls @ 100 mls/hr 11/01/16 10:00 11/01/16 21:44 Pepcid 20 Mg Premixed Ivpb - IVPB 100 mls/hr BID MARQUIS Administration Dextrose/Sodium Chloride 1,000 mls @ 83 mls/hr 11/01/16 15:00 11/01/16 15:32 D5-1/2ns - IV 83 mls/hr ASDIR [facility]QU[facility] Administration Insulin Aspart 1 vial 11/01/16 07:00 11/02/16 06:22 Novolog Vial Sliding Scale - SQ 6 units ACHS [facility]QU[facility] Administration Protocol Insulin Detemir 8 units 11/01/16 16:30 11/02/16 06:22 Levemir Vial SQ 8 units BIDI [facility]QU[facility] Administration Levothyroxine Sodium 50 mcg 11/01/16 14:56 11/02/16 06:28 Synthroid - PO 50 mcg DAILY@0700 [facility] Administration Lisinopril 20 mg 11/01/16 10:00 11/01/16 10:44 Prinivil PO 20 mg DAILY [facility] Administration Non-Formulary Medication 10 mg 11/01/16 22:00 Lovastatin [Lovastatin] PO HS [facility] Ondansetron HCl 4 mg 11/01/16 09:25 11/02/16 05:48 Zofran Injection IVPB 4 mg Q4H PRN Administration NAUSEA AND/OR VOMITING ASSESSMENT/PLAN: This is a 51 year old male with a PMH of DM, HTN, hyperthyroidism who presented to the hospital complaining of intermittent abdominal pain that is present for a year and got worse in the last 2 weeks. It has become constant, diffuse, cramping like, 03/21, associated with nausea and constipation, no relation to food, no alleviating/aggravating factors.He is admitted for abdominal pain. Abdominal pain: -pain control: Dilaudid 1 mg Q4h PRN -Pepcid 20 Mg IV and Zofran 4 mg IV Q4H PRN, D5 1/2 NS -evaluated by GI -will observe, no antibiotics recommended for now, probably related to DM Hypertension: -continue Lisinopril 20 mg qd -continue Norvasc 10 mg qd -cont HCTZ 25 mg qd -evaluated by Cardiology DM type 2: -Levemir 8 u BID and ISS constipation: -s/p enema Hyperthyroidism: -cont Synthroid 50 mg Hyperlipidemia; -continue Lovastatin 10 mg Dispo: We will continue to follow the patient. Thank you for this consultative opportunity. Problem List - Problems (1) Diabetes Code(s): E11.9 - TYPE 2 DIABETES MELLITUS WITHOUT COMPLICATIONS (2) HTN (hypertension) Code(s): I10 - ESSENTIAL (PRIMARY) HYPERTENSION (3) Hyperthyroidism Code(s): E05.90 - THYROTOXICOSIS, UNSP WITHOUT THYROTOXIC CRISIS OR STORM Visit type - Emergency Visit Emergency Visit: Yes ED Registration Date: 10/31/16 Care time: The patient presented to the Emergency Department on the above date and was hospitalized for further evaluation of their emergent condition. - New Patient This patient is new to me today: Yes Date on this admission: 11/05/16 - Critical Care Critical Care patient: No
[2016-11-02] MEDS: LISINOPRIL 20 MG TABLET (FP) PO SCH (09:53)
[2016-11-02] MEDS ORDERED: PT OWN MED DRAWER 7, Y5N ONE (10:04)
--- NOTE | 2016-11-02 10:12 | PN ---
Teaching Attending Note Name of Resident: Shefali Jiménez ATTENDING PHYSICIAN STATEMENT I saw and evaluated the patient. I reviewed the resident's note and discussed the case with the resident. I agree with the resident's findings and plan as documented. 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
[2016-11-02] MEDS: FAMOTIDINE 20 MG/50 ML IVPB 50 ML IVPB SCH ×2 (10:16→22:15)
--- NOTE | 2016-11-02 11:47 | PN ---
Progress Note, Physician Chief Complaint: Mild generalized abdominal pain No chest pain, palpitations, headaches, or dyspnea History of Present Illness: This is a 51 year old male with a PMH of DM2, HTN, and hyperthyroidism. He presented to ER with abdominal pain and bloating. He was recently evaluated at [facility] with similar complaints and discharged 2 days ago. He is receiving Dilaudid and complaining of constipation. He denies chest pain, palpitations, and CAMPBELL. - Current Medication List Current Medications: Active Medications Amlodipine Besylate (Norvasc -) 10 mg PO DAILY [facility] Last Admin: 11/02/16 10:12 Dose: Not Given Docusate Sodium (Colace -) 100 mg PO BID PRN PRN Reason: CONSTIPATION Last Admin: 10/31/16 23:45 Dose: 100 mg Hydrochlorothiazide (Hctz -) 25 mg PO DAILY [facility] Last Admin: 11/02/16 10:12 Dose: Not Given Hydromorphone HCl (Dilaudid Injection -) 1 mg IVPB Q4H PRN PRN Reason: PAIN Last Admin: 11/02/16 09:52 Dose: 1 mg Famotidine/Sodium Chloride (Pepcid 20 Mg Premixed Ivpb -) 50 mls @ 100 mls/hr IVPB BID [facility] Last Admin: 11/02/16 10:16 Dose: 100 mls/hr Dextrose/Sodium Chloride (D5-1/2ns -) 1,000 mls @ 83 mls/hr IV ASDIR [facility] Last Admin: 11/01/16 15:32 Dose: 83 mls/hr Insulin Aspart (Novolog Vial Sliding Scale -) 1 vial SQ ACHS [facility] PRN Reason: Protocol Last Admin: 11/02/16 06:22 Dose: 6 units Insulin Detemir (Levemir Vial) 8 units SQ BIDI [facility] Last Admin: 11/02/16 06:22 Dose: 8 units Levothyroxine Sodium (Synthroid -) 50 mcg PO DAILY@0700 [facility] Last Admin: 11/02/16 06:28 Dose: 50 mcg Lisinopril (Prinivil) 20 mg PO DAILY [facility] Last Admin: 11/02/16 09:53 Dose: 20 mg Non-Formulary Medication (Lovastatin [Lovastatin]) 10 mg PO HS [facility] Ondansetron HCl (Zofran Injection) 4 mg IVPB Q4H PRN PRN Reason: NAUSEA AND/OR VOMITING Last Admin: 11/02/16 09:53 Dose: 4 mg - Objective Vital Signs: Vital Signs Temperature 98.4 F 11/02/16 10:00 Pulse Rate 111 H 11/02/16 10:00 Respiratory Rate 22 11/02/16 10:00 Blood Pressure 158/101 11/02/16 10:00 O2 Sat by Pulse Oximetry (%) 94 L 11/01/16 21:00 Constitutional: Yes: No Distress Neck: Yes: Supple Cardiovascular: Yes: Regular Rate and Rhythm, S1, S2. No: JVD, Murmur Respiratory: Yes: CTA Bilaterally Gastrointestinal: Yes: Soft Edema: No Labs: CBC, BMP 11/02/16 06:00 11/02/16 06:00 - ....Imaging EKG: Report Reviewed, Image Reviewed Problem List - Problems (1) HTN (hypertension) Code(s): I10 - ESSENTIAL (PRIMARY) HYPERTENSION Assessment/Plan 1) HTN: A degree of his htn is likely due to his abdominal pain. Treat abdominal pain. Work up as per primary team. No adrenal findings on ct scan abdomen. Continue HCTZ 25 mg po daily Norvasc 10 mg daily If needed for better bp control if blood pressure high despite adequate pain control than give another dose of lisinopril 20mg for total daily dose of 40mg daily. No further cardiac testing at this time.
[2016-11-02] MEDS: hydrALAZINE HCL 25 MG TABLET (FP) PO SCH ×2 (13:57→22:14)
[2016-11-02] MEDS: DEXTROSE 5%-0.45% SALINE 1,000 ML IV SCH (16:10)
--- NOTE | 2016-11-02 17:28 | CONSULT ---
Consult Consult Specialty:: Surgery Reason for Consultation:: Abdominal pain - History of Present Illness History of Present Illness: 51 male with abdominal pain x 1 year This episode started 1 week ago Diffuse abdominal cramping +BM Denies fevers No prior abdominal surgery Some episodes of nausea on and off Currently hungry Seen at [facility] recently for same complaints Had EGD and imaging and was discharged Does not remember if he had an abdominal ultrasound CT A/P - no free air, no obstruction, no gross gastric, bowel, gallbladder, appendix, pancreatic pathology - History Source History Provided By: Patient, Medical Record Limitations to Obtaining History: No Limitations - Past Medical History [employer]: No: Alzheimer's, CVA, Dementia, Migraine, Multiple Sclerosis, Peripheral Neuropathy, Parkinson's, Seizure, Syncope, TIA, Vertigo, Other Cardio/Vascular: Yes: HTN Pulmonary: No: Asthma, Bronchitis, Cancer, COPD, O2 Dependent, Pneumonia, Previously Intubated, Pulmonary Embolus, Pulmonary Fibrosis, Sleep Apnea, Other Gastrointestinal: Yes: Constipation Hepatobiliary: No: Cirrhosis, Cholelithiasis, Cholecystitis, Choledocholithiasis , Hepatitis A, Hepatitis B, Hepatitis C, Other Renal/: No: Renal Failure, Renal Inusuff, BPH, Cancer, Hematuria, Hemodialysis , Neurogenic Bladder, Renal Calculi, UTI, Other Endocrine: Yes: Diabetes Mellitus - Past Surgical History Additional Surgical History: ANKLE INJURY - Alcohol/Substance Use Hx Alcohol Use: No - Smoking History Smoking history: Smoker current status UNK Have you smoked in the past 12 months: No Home Medications - Allergies Allergies/Adverse Reactions: Allergies Allergy/AdvReac Type Severity Reaction Status Date / Time No Known Allergies Allergy Verified 10/31/16 19:42 - Home Medications Home Medications: Ambulatory Orders Insulin Aspart [Novolog] 100 unit SQ ASDIR 10/31/16 Insulin Glargine,Hum.rec.anlog [Toujeo Solostar] 300 unit SQ ASDIR 10/31/16 Levothyroxine [Synthroid -] 25 mcg PO DAILY 10/31/16 Lisinopril/Hydrochlorothiazide [Lisinopril-Hctz 20-25 mg Tab] 1 each PO ASDIR Lovastatin 10 mg PO ASDIR 10/31/16 Metformin HCl 500 mg PO ASDIR 10/31/16 Family Disease History - Family Disease History Family Disease History: CA: Father (CARDIAC DISEASE, [place]), Other: Mother (SEPSIS) Review of Systems - Review of Systems Constitutional: denies: Chills, Fever HENT: reports: No Symptoms Neck: reports: No Symptoms Cardiovascular: denies: Chest Pain Respiratory: denies: Cough Gastrointestinal: reports: Abdominal Pain, Nausea, Other (Cramping abdominal pain) Genitourinary: reports: No Symptoms Neurological: denies: Change in LOC Pain Intensity: 3 Physical Exam Vital Signs: Vital Signs Temperature 98.9 F 11/02/16 14:24 Pulse Rate 117 H 11/02/16 14:24 Respiratory Rate 20 11/02/16 14:24 Blood Pressure 158/98 11/02/16 14:24 O2 Sat by Pulse Oximetry (%) 94 L 11/01/16 21:00 Constitutional: Yes: Calm HENT: Yes: WNL Neck: Yes: Supple Cardiovascular: Yes: Regular Rate and Rhythm Respiratory: Yes: Regular Gastrointestinal: Yes: Soft, Tenderness (Mild supraumbilical/epigastric discomfort on deep palpation). No: Distention, Hernia, Tenderness, Rebound Neurological: Yes: Alert, Oriented Labs: CBC, BMP 11/02/16 06:00 11/02/16 06:00 Imaging - Results Cat Scan: Report Reviewed, Image Reviewed Problem List - Problems (1) Abdominal pain Code(s): R10.9 - UNSPECIFIED ABDOMINAL PAIN Qualifiers: Abdominal location: unspecified location Qualified Code(s): R10.9 - Unspecified abdominal pain (2) Diabetes Code(s): E11.9 - TYPE 2 DIABETES MELLITUS WITHOUT COMPLICATIONS (3) Elevated amylase Code(s): R74.8 - ABNORMAL LEVELS OF OTHER SERUM ENZYMES Assessment/Plan 51 male with acute on chronic cramping abdominal pain Unclear etiology No acute abdomen at this time Recommend ultrasound to look at gallbladder as patient does not recall if he had a recent one to look for a source of his pain No gross findings on CT
[2016-11-02] MEDS ORDERED: INSULIN (NOVOLOG) ASPART 100 UNITS/ML 10ML VIAL ONE ×2 (18:11→21:45)
--- NOTE | 2016-11-02 19:03 | PN ---
Progress Note, Physician - Current Medication List Current Medications: Active Medications Amlodipine Besylate (Norvasc -) 10 mg PO DAILY [facility] Last Admin: 11/02/16 10:12 Dose: Not Given Docusate Sodium (Colace -) 100 mg PO BID PRN PRN Reason: CONSTIPATION Last Admin: 10/31/16 23:45 Dose: 100 mg Hydralazine HCl (Apresoline -) 25 mg PO BID [facility] Last Admin: 11/02/16 13:57 Dose: 25 mg Hydrochlorothiazide (Hctz -) 25 mg PO DAILY [facility] Last Admin: 11/02/16 10:12 Dose: Not Given Hydromorphone HCl (Dilaudid Injection -) 1 mg IVPB Q4H PRN PRN Reason: PAIN Last Admin: 11/02/16 18:02 Dose: 1 mg Famotidine/Sodium Chloride (Pepcid 20 Mg Premixed Ivpb -) 50 mls @ 100 mls/hr IVPB BID [facility] Last Admin: 11/02/16 10:16 Dose: 100 mls/hr Dextrose/Sodium Chloride (D5-1/2ns -) 1,000 mls @ 83 mls/hr IV ASDIR [facility] Last Admin: 11/02/16 16:10 Dose: 83 mls/hr Insulin Aspart (Novolog Vial Sliding Scale -) 1 vial SQ ACHS [facility] PRN Reason: Protocol Last Admin: 11/02/16 16:42 Dose: 6 units Insulin Detemir (Levemir Vial) 8 units SQ BIDI [facility] Last Admin: 11/02/16 16:42 Dose: 8 units Levothyroxine Sodium (Synthroid -) 50 mcg PO DAILY@0700 [facility] Last Admin: 11/02/16 06:28 Dose: 50 mcg Lisinopril (Prinivil) 20 mg PO DAILY [facility] Last Admin: 11/02/16 09:53 Dose: 20 mg Non-Formulary Medication (Lovastatin [Lovastatin]) 10 mg PO HS [facility] Ondansetron HCl (Zofran Injection) 4 mg IVPB Q4H PRN PRN Reason: NAUSEA AND/OR VOMITING Last Admin: 11/02/16 18:03 Dose: 4 mg - Objective Vital Signs: Vital Signs Temperature 98.7 F 11/02/16 18:14 Pulse Rate 103 H 11/02/16 18:14 Respiratory Rate 20 11/02/16 18:14 Blood Pressure 151/103 11/02/16 18:14 O2 Sat by Pulse Oximetry (%) 94 L 11/01/16 21:00 Constitutional: Yes: Calm Neck: Yes: WNL Cardiovascular: Yes: WNL Respiratory: Yes: WNL Gastrointestinal: Yes: Soft, Tenderness. No: Tenderness, Rebound Edema: No Labs: CBC, BMP 11/02/16 06:00 11/02/16 06:00 Problem List - Problems (1) Abdominal pain Code(s): R10.9 - UNSPECIFIED ABDOMINAL PAIN Qualifiers: Abdominal location: unspecified location Qualified Code(s): R10.9 - Unspecified abdominal pain (2) Diabetes Code(s): E11.9 - TYPE 2 DIABETES MELLITUS WITHOUT COMPLICATIONS (3) HTN (hypertension) Code(s): I10 - ESSENTIAL (PRIMARY) HYPERTENSION (4) Hypothyroid Code(s): E03.9 - HYPOTHYROIDISM, UNSPECIFIED (5) Leukocytosis Code(s): D72.829 - ELEVATED WHITE BLOOD CELL COUNT, UNSPECIFIED Assessment/Plan The patient is a 51 year old male with a past medical hx of diabetes, HTN, hyperthyroidism who presents to the ED complaining of intermittent diffuse abdominal pain. The patient reports he was seen at [facility] two days ago for the same complaint. He notes he was given medication for his pain and had an entire work up including a CT abdomen/pelvis and endoscopy, which were both unremarkable. He states he stayed in the hospital for two days and was discharged yesterday. The patient states his pain then came back today and is very severe. He reports this pain started 1 year ago and has recently worsened over the past few days. He is scheduled for a colonoscopy at the end of the month. The patient reports waves of nausea but denies fever, chills, vomiting, diarrhea , chest pain, SOB. (1) Abdominal pain Code(s): R10.9 - UNSPECIFIED ABDOMINAL PAIN Qualifiers: Abdominal location: unspecified location Qualified Code(s): R10.9 - Unspecified abdominal pain chronic x 1 year recent admission/work up at [facility] as per patient gi & surg consults appreciated npo ivf had small bm s/p enema f/u ctap report -> unremarkable gastroparesis? 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
--- NOTE | 2016-11-02 20:30 | PN ---
GI Progress Note Subjective: GASTROENTEROLOGY HAD SOME PAIN LAST NIGHT IMPROVED WITH REGLAN AND DILAUDID I HAVE REVIEWED THE ENTIRE CHART A [facility], NO SOURCE OF ABDOMINAL PAIN FOUND, HAD EGD NEG EXCEPT FOR GASTRITIS, CT SCAN NEGATIVE EXCEPT FOR RENAL STONES, HIDA SCAN WAS NEGATIVE, CARDIAC CATH REVEALED MEDICAL CAD DISEASE, COLONOSCOPY SET UOP FOR OUTPATIENT WEDNESDAY AND GASTROPARESIS WAS ENTERTAINED A SOURCE OF PAIN. - Objective Vital Signs: Vital Signs Temperature 98.7 F 11/02/16 18:14 Pulse Rate 103 H 11/02/16 18:14 Respiratory Rate 20 11/02/16 18:14 Blood Pressure 151/103 11/02/16 18:14 O2 Sat by Pulse Oximetry (%) 94 L 11/01/16 21:00 Constitutional: No Distress Eyes: Yes: Conjunctiva Clear HENT: Yes: Atraumatic Neck: Yes: Supple Cardiovascular: Yes: Regular Rate and Rhythm Respiratory: Yes: Regular Gastrointestinal Inspection: Yes: WNL ...Auscultate: Yes: Normoactive Bowel Sounds ...Palpate: Yes: Soft, Tenderness, Epigastium Extremities: Yes: WNL Labs: CBC, BMP 11/02/16 06:00 11/02/16 06:00 Laboratory Tests 11/01/16 11/02/16 11/02/16 10:00 06:00 06:00 WBC 12.2 H Hgb 12.8 Hct 37.8 MCV 85.1 MCHC 33.9 Plt Count 211 MPV 10.7 Neutrophils % 72.9 Lymphocytes % 19.9 Monocytes % 5.8 Eosinophils % 0.2 Basophils % 1.2 ESR 62 H Sodium 131 L Potassium 4.0 Chloride 93 L Carbon Dioxide 25 Anion Gap 13 BUN 13 Random Glucose 275 H D Calcium 9.4 Total Bilirubin 0.7 AST 38 H D ALT 49 Alkaline Phosphatase 78 Creatine Kinase 634 H D Creatine Kinase Index 0.4 CK-MB (CK-2) 2.553 Total Amylase Lipase 11/02/16 06:00 WBC Hgb Hct MCV MCHC Plt Count MPV Neutrophils % Lymphocytes % Monocytes % Eosinophils % Basophils % ESR Sodium Potassium Chloride Carbon Dioxide Anion Gap BUN Random Glucose Calcium Total Bilirubin AST ALT Alkaline Phosphatase Creatine Kinase Creatine Kinase Index CK-MB (CK-2) Total Amylase 87 D Lipase 232 - ....Imaging Ultrasound: Image Reviewed Problem List - Problems (1) Abdominal pain Assessment/Plan: THE DIFFERENTIAL HERE IS WIDE. THE SYMPTOMS ARE VAGUE, THE CT SCAN NOT OFFICIALLY READ. I SEE A DILATED STOMACH AND GB BUT PANCREAS LOOKS OK. THERE IS ALSO A SMALL HERNIA. THE CAUSES OF HIS PAIN COULD BE PANCREATITIS, COMPLICATIONS OF DIABETES LIKE GASTROPARESIS, CONSTIPATION FROM HYPOTHYROIDISM. THE EGD WAS SUPPOSEDLY NORMAL HE WOULD NEED AN OUTPATIENT COLONOSCOPY. SEE SUBJECTIVE DATA I HAVE SPOKEN WITH THE PATIENT AND ASKED HIM IF HE COULD HOLD OFF ON THE NARCOTICS ALL DAY WEDNESDAY SO WE CAN GET A GASTRIC EMPTYING SCAN ON WEDNESDAY. HE HAS AGREED TO TRY. IF THIS IS NEGATIVE WILL TRY TO DO COLONOSCOPY ON WEDNESDAY. Code(s): R10.9 - UNSPECIFIED ABDOMINAL PAIN Qualifiers: Abdominal location: unspecified location Qualified Code(s): R10.9 - Unspecified abdominal pain (2) Elevated amylase Code(s): R74.8 - ABNORMAL LEVELS OF OTHER SERUM ENZYMES (3) Ventral hernia Code(s): K43.9 - VENTRAL HERNIA WITHOUT OBSTRUCTION OR GANGRENE (4) Diabetes Code(s): E11.9 - TYPE 2 DIABETES MELLITUS WITHOUT COMPLICATIONS (5) Hypothyroid Code(s): E03.9 - HYPOTHYROIDISM, UNSPECIFIED
[2016-11-03] MEDS: ONDANSETRON 4 MG/2 ML VIAL IVPB PRN ×3 (02:32→15:30)
[2016-11-03] MEDS: INSULIN DETEMIR 100 UNITS/ML MDV SQ SCH ×2 (06:45→16:49)
[2016-11-03] MEDS: INSULIN SLIDING SCALE (NOVOLOG) 1 VIAL SQ SCH ×4 (06:48→21:46)
[2016-11-03] MEDS: LEVOTHYROXINE NA 50 MCG TABLET (FP) PO SCH (06:49)
[2016-11-03 08:13] LABS: BASOPHIL 0.9 % (0-2.0); EOSINOPHIL 0.7 % (0-4.5); MCH 28.7 pg (25.7-33.7); MCHC 33.4 g/dl (32.0-35.9); MEAN CELL VOLUME 85.8 fl (80-96); MEAN PLT VOLUME 10.6 fl (7.5-11.1); NEUTROPHILS 62.1 % (42.8-82.8); PLATELET COUNT 239 K/MM3 (134-434); RDW 14.2 % (11.9-15.9); WHITE BLOOD COUNT 13.1 K/mm3 (4.0-10.0)
[2016-11-03 08:39] LABS: ALBUMIN 3.5 g/dl (3.4-5.0); ANION GAP 14 (8-16); CALCIUM 9.8 mg/dL (8.5-10.1); CO2 24 mmol/L (21-32); COCKROFT - GAULT 122.04; CREATININE 1.2 mg/dL (0.7-1.3); GLUCOSE,RANDOM 218 mg/dL (74-106); SGOT/AST 42 U/L (15-37); SGPT/ALT 57 U/L (12-78)
[2016-11-03 08:42] LABS: ALK PHOS 87 U/L (45-117); BILIRUBIN,TOTAL 0.9 mg/dL (0.2-1.0); TOT PROT 8.1 g/dl (6.4-8.2)
[2016-11-03] MEDS: HYDROmorphone HCL CARPU-JECT 1 MG/1 ML DISP.SYRIN IVPB PRN ×2 (10:22→16:45)
[2016-11-03] MEDS: amLODIPine BESYLATE 10 MG TABLET (FP) PO SCH (10:26)
[2016-11-03] MEDS: LISINOPRIL 20 MG TABLET (FP) PO SCH (10:26)
[2016-11-03] MEDS: HYDROCHLOROTHIAZIDE 25 MG TABLET (FP) PO SCH (10:26)
[2016-11-03] MEDS: hydrALAZINE HCL 25 MG TABLET (FP) PO SCH ×2 (10:27→21:45)
[2016-11-03] MEDS: DOCUSATE SODIUM 100 MG CAPSULE (FP) PO PRN (10:34)
[2016-11-03] MEDS: FAMOTIDINE 20 MG/50 ML IVPB 50 ML IVPB SCH ×2 (11:07→21:46)
--- NOTE | 2016-11-03 11:35 | PN ---
Progress Note, Physician Chief Complaint: Abdominal pain mild today Appears comfortable at time of exam and lying flat No chest pain or sob. History of Present Illness: This is a 51 year old male with a PMH of DM2, HTN, and hyperthyroidism. He presented to ER with abdominal pain and bloating. He was recently evaluated at [facility] with similar complaints and discharged 2 days ago. He is receiving Dilaudid and complaining of constipation. He denies chest pain, palpitations, and CAMPBELL. - Current Medication List Current Medications: Active Medications Amlodipine Besylate (Norvasc -) 10 mg PO DAILY COUNTS INCLUDE 234 BEDS AT THE [facility] Last Admin: 11/03/16 10:26 Dose: 10 mg Docusate Sodium (Colace -) 100 mg PO BID PRN PRN Reason: CONSTIPATION Last Admin: 11/03/16 10:34 Dose: 100 mg Hydralazine HCl (Apresoline -) 25 mg PO BID COUNTS INCLUDE 234 BEDS AT THE [facility] Last Admin: 11/03/16 10:27 Dose: 25 mg Hydrochlorothiazide (Hctz -) 25 mg PO DAILY COUNTS INCLUDE 234 BEDS AT THE [facility] Last Admin: 11/03/16 10:26 Dose: 25 mg Hydromorphone HCl (Dilaudid Injection -) 1 mg IVPB Q4H PRN PRN Reason: PAIN Last Admin: 11/03/16 10:22 Dose: 1 mg Famotidine/Sodium Chloride (Pepcid 20 Mg Premixed Ivpb -) 50 mls @ 100 mls/hr IVPB BID COUNTS INCLUDE 234 BEDS AT THE [facility] Last Admin: 11/03/16 11:07 Dose: 100 mls/hr Insulin Aspart (Novolog Vial Sliding Scale -) 1 vial SQ ACHS COUNTS INCLUDE 234 BEDS AT THE [facility] PRN Reason: Protocol Last Admin: 11/03/16 06:48 Dose: 4 units Insulin Detemir (Levemir Vial) 8 units SQ BIDI COUNTS INCLUDE 234 BEDS AT THE [facility] Last Admin: 11/03/16 06:45 Dose: Not Given Levothyroxine Sodium (Synthroid -) 50 mcg PO DAILY@0700 COUNTS INCLUDE 234 BEDS AT THE [facility] Last Admin: 11/03/16 06:49 Dose: 50 mcg Lisinopril (Prinivil) 20 mg PO DAILY COUNTS INCLUDE 234 BEDS AT THE [facility] Last Admin: 11/03/16 10:26 Dose: 20 mg Non-Formulary Medication (Lovastatin [Lovastatin]) 10 mg PO HS COUNTS INCLUDE 234 BEDS AT THE [facility] Ondansetron HCl (Zofran Injection) 4 mg IVPB Q4H PRN PRN Reason: NAUSEA AND/OR VOMITING Last Admin: 11/03/16 08:26 Dose: 4 mg - Objective Vital Signs: Vital Signs Temperature 98.5 F 11/03/16 06:00 Pulse Rate 112 H 11/03/16 06:00 Respiratory Rate 20 11/03/16 06:00 Blood Pressure 132/86 11/03/16 06:00 O2 Sat by Pulse Oximetry (%) 97 11/02/16 21:00 Constitutional: Yes: No Distress Neck: Yes: Supple Cardiovascular: Yes: Regular Rate and Rhythm. No: JVD, Murmur Respiratory: Yes: CTA Bilaterally Extremities: Yes: WNL Edema: No Labs: CBC, BMP 11/03/16 06:58 11/03/16 06:58 Problem List - Problems (1) HTN (hypertension) Code(s): I10 - ESSENTIAL (PRIMARY) HYPERTENSION Assessment/Plan This is a 51 year old male with a PMH of DM2, HTN, and hyperthyroidism. He presented to ER with abdominal pain and bloating. He was recently evaluated at [facility] with similar complaints and discharged 2 days ago. He is receiving Dilaudid and complaining of constipation. He denies chest pain, palpitations, and CAMPBELL. 1) HTN - Currently on amlodipine, hctz, hydralazine and lisinopril. this mornings BP wnl but if bp remains for most part uncontrolled than increase lisinopril to 40mg daily. -Please contact [facility] for records. Patient says had a cardiac cath there and was told no blockages and also reports that his heart was not pumping right. If LVEF is decreased would change medical management such as beta asif. If can not obtain records than would repeat echocardiogram. Please if needed increase lisinopril dose prior to increasing hydralazine. More benefit from thom-i than from hydralazine.
--- NOTE | 2016-11-03 13:45 | PN ---
Physical Exam: SUBJECTIVE: Patient seen and examined. He is feeling better today. His abdominal pain improved to 7/10, BP stabilized. He denies N/V, diarrhea, constipation, fever, chills. OBJECTIVE: Vital Signs Period Temp Pulse Resp BP Sys/Dolan Pulse Ox Last 24 Hr 98.5 F-98.9 F 101-117 20-20 132-158/86-103 97 GENERAL: The patient is awake, alert, and fully oriented, in no acute distress. HEAD: Normal with no signs of trauma. EYES: extraocular movements intact, sclera anicteric, conjunctiva clear. No ptosis. ENT: moist mucous membranes. NECK: Trachea midline, full range of motion, supple. LUNGS: Breath sounds equal, clear to auscultation bilaterally, no wheezes, no crackles, no accessory muscle use. HEART: Regular rate and rhythm, S1, S2 without murmur, rub or gallop. ABDOMEN: Soft, tender to palpation in all 4Q, nondistended, normoactive bowel sounds, no guarding, no rebound. EXTREMITIES: 2+ pulses, warm, no edema. NEUROLOGICAL: No facial asymmetry. Normal speech, gait not observed. PSYCH: Normal mood, normal affect. SKIN: Warm, dry, normal turgor, no rashes or lesions noted Laboratory Results - last 24 hr 11/02/16 11/02/16 11/03/16 16:30 20:59 06:04 WBC RBC Hgb Hct MCV MCHC RDW Plt Count MPV Neutrophils % Lymphocytes % Monocytes % Eosinophils % Basophils % Sodium Potassium Chloride Carbon Dioxide Anion Gap BUN Creatinine Creat Clearance w eGFR POC Glucometer 290 228 204 Random Glucose Calcium Total Bilirubin AST ALT Alkaline Phosphatase Total Protein Albumin 11/03/16 11/03/16 11/03/16 06:58 06:58 11:10 WBC 13.1 H RBC 4.88 Hgb 14.0 Hct 41.9 MCV 85.8 MCHC 33.4 RDW 14.2 Plt Count 239 MPV 10.6 Neutrophils % 62.1 Lymphocytes % 29.7 D Monocytes % 6.6 Eosinophils % 0.7 D Basophils % 0.9 Sodium 131 L Potassium 3.9 Chloride 93 L Carbon Dioxide 24 Anion Gap 14 BUN 15 Creatinine 1.2 Creat Clearance w eGFR > 60 POC Glucometer 258 Random Glucose 218 H D Calcium 9.8 Total Bilirubin 0.9 D AST 42 H ALT 57 Alkaline Phosphatase 87 Total Protein 8.1 Albumin 3.5 Active Medications Generic Name Dose Route Start Last Admin Trade Name Freq PRN Reason Stop Dose Admin Amlodipine Besylate 10 mg 11/01/16 02:15 11/03/16 10:26 Norvasc - PO 10 mg DAILY MARQUIS Administration Docusate Sodium 100 mg 10/31/16 22:37 11/03/16 10:34 Colace - PO 100 mg BID PRN Administration CONSTIPATION Hydralazine HCl 25 mg 11/02/16 14:00 11/03/16 10:27 Apresoline - PO 25 mg BID MARQUIS Administration Hydrochlorothiazide 25 mg 11/01/16 10:00 11/03/16 10:26 Hctz - PO 25 mg DAILY MARQUIS Administration Hydromorphone HCl 1 mg 11/01/16 21:47 11/03/16 10:22 Dilaudid Injection - IVPB 1 mg Q4H PRN Administration PAIN Famotidine/Sodium Chloride 50 mls @ 100 mls/hr 11/01/16 10:00 11/03/16 11:07 Pepcid 20 Mg Premixed Ivpb - IVPB 100 mls/hr BID MARQUIS Administration Insulin Aspart 1 vial 11/01/16 07:00 11/03/16 11:39 Novolog Vial Sliding Scale - SQ 6 units ACHS [facility] Administration Protocol Insulin Detemir 8 units 11/01/16 16:30 11/03/16 06:45 Levemir Vial SQ Not Given BIDI [facility] Levothyroxine Sodium 50 mcg 11/01/16 14:56 11/03/16 06:49 Synthroid - PO 50 mcg DAILY@0700 MARQUIS Administration Lisinopril 20 mg 11/01/16 10:00 11/03/16 10:26 Prinivil PO 20 mg DAILY [facility] Administration Non-Formulary Medication 10 mg 11/01/16 22:00 Lovastatin [Lovastatin] PO HS [facility] Ondansetron HCl 4 mg 11/01/16 09:25 11/03/16 08:26 Zofran Injection IVPB 4 mg Q4H PRN Administration NAUSEA AND/OR VOMITING ASSESSMENT/PLAN: This is a 51 year old male with a PMH of DM, HTN, hyperthyroidism who presented to the hospital complaining of intermittent abdominal pain that is present for a year and got worse in the last 2 weeks. It has become constant, diffuse, cramping like, 03/21, associated with nausea and constipation, no relation to food, no alleviating/aggravating factors.He is admitted for abdominal pain. Abdominal pain: -pain control: Dilaudid 1 mg Q4h PRN -Pepcid 20 Mg IV and Zofran 4 mg IV Q4H PRN, D5 1/ NS -evaluated by GI, scheduled for colonoscopy on -no antibiotics recommended for now, probably gastroparesis related to DM Hypertension: -continue Lisinopril 20 mg qd -continue Norvasc 10 mg qd -cont HCTZ 25 mg qd -evaluated by Cardiology, stable DM type 2: -Levemir 8 u BID and ISS constipation: -s/p enema Hyperthyroidism: -cont Synthroid 50 mg Hyperlipidemia; -continue Lovastatin 10 mg Dispo: We will stop following the patient. Thank you for this consultative opportunity. Visit type - Emergency Visit Emergency Visit: Yes ED Registration Date: 10/31/16 Care time: The patient presented to the Emergency Department on the above date and was hospitalized for further evaluation of their emergent condition. - New Patient This patient is new to me today: No - Critical Care Critical Care patient: No
--- NOTE | 2016-11-03 14:31 | PN ---
Teaching Attending Note Name of Resident: Shefali Jiménez ATTENDING PHYSICIAN STATEMENT I saw and evaluated the patient. I reviewed the resident's note and discussed the case with the resident. I agree with the resident's findings and plan as documented. SUBJECTIVE: continued abd pain OBJECTIVE: Vital Signs Period Temp Pulse Resp BP Sys/Dolan Pulse Ox Last 24 Hr 98.5 F-99.0 F 100-112 20-20 132-151/86-103 96-97 cor-rrr lungs clearl abd soft, +midepigastric pain ext no edema Microbiology 11/01/16 15:40 Blood - Peripheral Venous Blood Culture - Preliminary NO GROWTH OBTAINED AFTER 24 HOURS, INCUBATION TO CONTINUE FOR 4 DAYS. 11/01/16 15:30 Blood - Peripheral Venous Blood Culture - Preliminary NO GROWTH OBTAINED AFTER 24 HOURS, INCUBATION TO CONTINUE FOR 4 DAYS. 11/01/16 00:45 Urine - Urine Clean Catch Urine Culture - Final NO GROWTH OBTAINED ASSESSMENT AND PLAN: continues with abdominal pain, poor appetite and constipation for gastric emptying scan and colonoscopy cultures are negative doubt infection please call back if needed
--- NOTE | 2016-11-03 19:29 | PN ---
Progress Note, Physician Chief Complaint: awake , returned from abd jennifer still has pain - Current Medication List Current Medications: Active Medications Amlodipine Besylate (Norvasc -) 10 mg PO DAILY [facility] Last Admin: 11/03/16 10:26 Dose: 10 mg Docusate Sodium (Colace -) 100 mg PO BID PRN PRN Reason: CONSTIPATION Last Admin: 11/03/16 10:34 Dose: 100 mg Hydralazine HCl (Apresoline -) 25 mg PO BID [facility] Last Admin: 11/03/16 10:27 Dose: 25 mg Hydrochlorothiazide (Hctz -) 25 mg PO DAILY [facility] Last Admin: 11/03/16 10:26 Dose: 25 mg Hydromorphone HCl (Dilaudid Injection -) 1 mg IVPB Q4H PRN PRN Reason: PAIN Last Admin: 11/03/16 16:45 Dose: 1 mg Famotidine/Sodium Chloride (Pepcid 20 Mg Premixed Ivpb -) 50 mls @ 100 mls/hr IVPB BID [facility] Last Admin: 11/03/16 11:07 Dose: 100 mls/hr Insulin Aspart (Novolog Vial Sliding Scale -) 1 vial SQ ACHS [facility] PRN Reason: Protocol Last Admin: 11/03/16 16:50 Dose: 4 units Insulin Detemir (Levemir Vial) 8 units SQ BIDI [facility] Last Admin: 11/03/16 16:49 Dose: 8 units Levothyroxine Sodium (Synthroid -) 50 mcg PO DAILY@0700 [facility] Last Admin: 11/03/16 06:49 Dose: 50 mcg Lisinopril (Prinivil) 20 mg PO DAILY [facility] Last Admin: 11/03/16 10:26 Dose: 20 mg Non-Formulary Medication (Lovastatin [Lovastatin]) 10 mg PO HS [facility] Ondansetron HCl (Zofran Injection) 4 mg IVPB Q4H PRN PRN Reason: NAUSEA AND/OR VOMITING Last Admin: 11/03/16 15:30 Dose: 4 mg - Objective Vital Signs: Vital Signs Temperature 98.6 F 11/03/16 19:00 Pulse Rate 111 H 11/03/16 19:00 Respiratory Rate 20 11/03/16 19:00 Blood Pressure 137/85 11/03/16 19:00 O2 Sat by Pulse Oximetry (%) 96 11/03/16 09:00 Constitutional: Yes: Moderate Distress Eyes: Yes: WNL HENT: Yes: WNL Neck: Yes: WNL Cardiovascular: Yes: WNL Respiratory: Yes: WNL Gastrointestinal: Yes: Tenderness Musculoskeletal: Yes: WNL Extremities: Yes: WNL Edema: No Peripheral Pulses WNL: Yes Integumentary: Yes: WNL Wound/Incision: Yes: Clean/Dry Neurological: Yes: WNL ...Motor Strength: WNL Psychiatric: Yes: WNL Labs: CBC, BMP 11/03/16 06:58 11/03/16 06:58 Problem List - Problems (1) Abdominal pain Code(s): R10.9 - UNSPECIFIED ABDOMINAL PAIN Qualifiers: Abdominal location: unspecified location Qualified Code(s): R10.9 - Unspecified abdominal pain (2) Diabetes Code(s): E11.9 - TYPE 2 DIABETES MELLITUS WITHOUT COMPLICATIONS (3) HTN (hypertension) Code(s): I10 - ESSENTIAL (PRIMARY) HYPERTENSION Assessment/Plan sono shows fatty liver gastric emptying study tomorrow diabetic gastroparesis likely gi eval appreciated pain control reglan iv less narcotics recommended
[2016-11-03] MEDS ORDERED: INSULIN (NOVOLOG) ASPART 100 UNITS/ML 10ML VIAL ONE (20:20)
[2016-11-03] MEDS: METOCLOPRAMIDE HCL INJECTION 10 MG/2 ML VIAL IVPB SCH (20:41)
[2016-11-04] MEDS: METOCLOPRAMIDE HCL INJECTION 10 MG/2 ML VIAL IVPB SCH (02:58)
[2016-11-04] MEDS: INSULIN SLIDING SCALE (NOVOLOG) 1 VIAL SQ SCH ×2 (06:35→12:18)
[2016-11-04] MEDS: LEVOTHYROXINE NA 50 MCG TABLET (FP) PO SCH (06:36)
[2016-11-04] MEDS: INSULIN DETEMIR 100 UNITS/ML MDV SQ SCH (06:36)
[2016-11-04] MEDS: ONDANSETRON 4 MG/2 ML VIAL IVPB PRN (06:39)
[2016-11-04] MEDS ORDERED: INSULIN (NOVOLOG) ASPART 100 UNITS/ML 10ML VIAL ONE ×2 (07:04→12:17)
[2016-11-04] MEDS: HYDROCHLOROTHIAZIDE 25 MG TABLET (FP) PO SCH (09:47)
[2016-11-04] MEDS: LISINOPRIL 20 MG TABLET (FP) PO SCH (09:47)
[2016-11-04] MEDS: FAMOTIDINE 20 MG/50 ML IVPB 50 ML IVPB SCH (09:47)
[2016-11-04] MEDS: amLODIPine BESYLATE 10 MG TABLET (FP) PO SCH (09:47)
[2016-11-04] MEDS: hydrALAZINE HCL 25 MG TABLET (FP) PO SCH (09:47)
[2016-11-04] MEDS ORDERED: SODIUM CHLORIDE 1,000 ML IV SCH (10:00)
--- NOTE | 2016-11-04 10:07 | DS ---
Physical Examination Vital Signs: Vital Signs Temperature 98.8 F 11/04/16 06:00 Pulse Rate 107 H 11/04/16 06:00 Respiratory Rate 20 11/04/16 06:00 Blood Pressure 136/100 11/04/16 06:00 O2 Sat by Pulse Oximetry (%) 96 11/03/16 21:00 Findings/Remarks: awake alert, feeling better, tolerating liquids, mark dvance to full diabetic low sodium diet Constitutional: Yes: No Distress Eyes: Yes: WNL HENT: Yes: WNL Neck: Yes: WNL Cardiovascular: Yes: WNL Respiratory: Yes: WNL Gastrointestinal: Yes: Tenderness (NO REBOUND, GENERALIZED MILD TENDERNESS) Renal/: Yes: WNL Musculoskeletal: Yes: WNL Extremities: Yes: WNL Edema: No Peripheral Pulses WNL: Yes Integumentary: Yes: WNL Wound/Incision: Yes: Clean/Dry Neurological: Yes: WNL ...Motor Strength: WNL Psychiatric: Yes: WNL Labs: CBC, BMP 11/03/16 06:58 11/03/16 06:58 Discharge Summary Reason For Visit: ABDOMINAL PAIN Current Active Problems Abdominal pain (Acute) Diabetes (Acute) Elevated amylase (Acute) HTN (hypertension) (Acute) Hyperthyroidism (Acute) Hypothyroid (Acute) Leukocytosis (Acute) Ventral hernia (Acute) Procedures: Principal: CT SCAN/SONO Other Procedures: LABS Hospital Course: ACUTE ABDOMEN RESOLVING, GI UPPER SERIES OUT PATIENT WITH COLONOSCOPY, WILL NEED ALL OUTPATIENT GI CARE DONE WITH DR MCLAUGHLIN, PLEASE HAVE PATIENT CALL AND SCHEDULE WITH DR MCLAUGHLIN AND CARROLL. Condition: Stable - Instructions Diet, Activity, Other Instructions: FOLLOW UP DR TALAVERA AND LISSETTE OUTPATIENT DIABETIC LOW SODIUM Referrals: Keisha Talavera [Primary Care Provider] - Disposition: HOME - Home Medications Comprehensive Discharge Medication List: Ambulatory Orders Insulin Aspart [Novolog] 100 unit SQ [facility] 10/31/16 Insulin Glargine,Hum.rec.anlog [Toujechristy Solostar] 300 unit SQ [facility] 10/31/16 Levothyroxine [Synthroid -] 25 mcg PO DAILY 10/31/16 Lisinopril/Hydrochlorothiazide [Lisinopril-Hctz 20-25 mg Tab] 1 each PO [facility] Lovastatin 10 mg PO [facility] 10/31/16 Metformin HCl 500 mg PO [facility] 10/31/16
[2016-11-04] MEDS ORDERED: METOCLOPRAMIDE HCL 10 MG TABLET (FP) PO SCH (11:00)
[2016-11-04 14:13] VITALS: BP 117/80; PULSE 90; TEMP 98.6
== END 2016-11-04 13:19 | disposition home or self-care (01) | DRG 48 ==
LOC: JER 19:35 → JERBED 23:14 → J5S 11-01 00:51
PROVIDERS: ADMIT Family Medicine; ATTEND Family Medicine
DX: E11.43 Type 2 diabetes mellitus with diabetic autonomic (poly)neuropathy (principal); K31.84 Gastroparesis; I10 Essential (primary) hypertension; E03.9 Hypothyroidism, unspecified; Z79.4 Long term (current) use of insulin; E66.9 Obesity, unspecified; K43.9 Ventral hernia without obstruction or gangrene; E78.5 Hyperlipidemia, unspecified; K59.00 Constipation, unspecified; Z68.39 Body mass index [BMI] 39.0-39.9, adult; K76.0 Fatty (change of) liver, not elsewhere classified
CPT/HCPCS: 36415; 74176-TC; 76700-TC; 80053; 80307; 81003; 81015; 82150; 82550; 82553; 83690; 84443; 84484; 85025; 85651; 87040; 87086; 93005; 93010; 99282-25; 99285-25